=== PATIENT | female | born 1960 | race Asian ===

== ENCOUNTER 2017-11-03 17:03 | Emergency (ER) | payer OTHER ==
[~2017-11-03] VITALS: Ht 165.1 cm; Wt 68.2 kg
[2017-11-03 17:09] VITALS: TEMP 97.8
[2017-11-03] MEDS ORDERED: ALLEGRA 180MG180 MG PO (17:52)
[2017-11-03 19:31] VITALS: BP 133/75; PULSE 60
== END 2017-11-03 19:34 | disposition home or self-care (01) ==
LOC: COL.ER 17:03
DX: S01.81XA Laceration without foreign body of other part of head, initial encounter (principal); S16.1XXA Strain of muscle, fascia and tendon at neck level, initial encounter; R40.2412 Glasgow coma scale score 13-15, at arrival to emergency department; W18.39XA Other fall on same level, initial encounter; W22.09XA Striking against other stationary object, initial encounter; Y92.000 Kitchen of unspecified non-institutional (private) residence as the place of occurrence of the external cause

== ENCOUNTER → 2020-03-07 | Outpatient (CLI) | payer OTHER ==
[~2020-03-07] MED LIST: ALLEGRA 180MG180 MG PO
== END ==
LOC: COL.RAD 07:40
DX: M18.12 Unilateral primary osteoarthritis of first carpometacarpal joint, left hand (principal)

== ENCOUNTER 2020-07-31 01:30 | Emergency (ER) | payer OTHER ==
[~2020-07-31] VITALS: Ht 165.1 cm; Wt 68.2 kg
[2020-07-31 01:38] VITALS: TEMP 98.1
[2020-07-31 02:43] LABS: BASO % 0.6 % (0.0-2.0); EOS # 0.1 (0.0-0.7); GRAN % 56.7 % (42.2-75.2); HEMATOCRIT 39.2 % (37.0-47.0); LYMPH # 2.4 (1.2-3.4); LYMPH % 33.9 % (20.0-51.0); MEAN CELL VOLUME 94 fl (80.0-100.0); MEAN CORPUSCULAR HEMOGLOBIN 31 pg (27.0-31.0); MEAN CORPUSCULAR HGB CONC 33 g/dl (33.0-37.0); MEAN PLATELET VOLUME 8.9 fl (7.4-10.4); MONO # 0.5 (0.1-0.6); MONO % 6.7 % (1.7-9.3); PLATELET COUNT 273 K/mm3 (130-400); RED BLOOD COUNT 4.18 M/mm3 (4.10-5.30); REDCELL DISTRIBUTION WIDTH-CV 12.6 % (11.5-14.5)
[2020-07-31 02:53] LABS: ALANINE AMINOTRANSFERASE 20 U/L (4-34); ALBUMIN 4.3 gm/dL (3.5-5.0); ALKALINE PHOSPHATASE 47 U/L (50-136); ANION GAP 7 mmol/L (7-16); AST,SGOT 22 U/L (15-37); BILIRUBIN,TOTAL 0.4 mg/dL (0.0-1.0); BLOOD UREA NITROGEN 14 mg/dL (7-17); CALCIUM 9.3 mg/dL (8.4-10.2); CARBON DIOXIDE 30 mmol/L (22-30); CHLORIDE 103 mmol/L (98-107); CREATININE, serum 0.52 (0.52-1.25); GLUCOSE 142 mg/dL (74-106); POTASSIUM 3.5 mmol/L (3.4-5.0); SODIUM 139 mmol/L (137-145)
[2020-07-31 03:08] LABS: TROPONIN-I < 0.012 ng/mL (0.000-0.035)
[2020-07-31] MEDS ORDERED: BACIGUENT3.5 GM OU (05:05)
[2020-07-31 06:00] VITALS: BP 132/73; PULSE 71
[2020-07-31] MEDS ORDERED: BACITRACIN TOPIC1 TU TOP (06:00)
== END 2020-07-31 06:00 | disposition home or self-care (01) ==
LOC: COL.ER 01:30
PROVIDERS: Emergency Medicine
DX: S01.01XA Laceration without foreign body of scalp, initial encounter (principal); Z87.891 Personal history of nicotine dependence; W01.198A Fall on same level from slipping, tripping and stumbling with subsequent striking against other object, initial encounter; Y93.01 Activity, walking, marching and hiking; Y92.091 Bathroom in other non-institutional residence as the place of occurrence of the external cause
CPT/HCPCS: J7030